=== PATIENT | female | born 1930 | race Caucasian/White ===

== ENCOUNTER 2017-02-04 03:59 | Emergency (ER) | END 2017-02-04 07:05 | disposition home or self-care (01) | DX: J45.901 Unspecified asthma with (acute) exacerbation (principal); Z96.641 Presence of right artificial hip joint | CPT/HCPCS: 36415; 71010; 80048; 84484; 85025; 93005; 94644; 99285; J7040 ==

== ENCOUNTER 2017-04-23 05:16 | Emergency (ER) | END 2017-04-23 07:00 | disposition home or self-care (01) ==

== ENCOUNTER 2017-09-01 20:52 | Inpatient (IN) | END 2017-09-03 18:58 | disposition short-term general hospital (02) | DRG 190 ==